=== PATIENT | female | born 1985 | race American Indian/Alaskan Native ===

== ENCOUNTER 2016-12-12 10:56 | Emergency (ER) | payer OTHER ==
--- NOTE | 2016-12-12 12:05 | C.PDOC ---
History Of Present Illness The patient, a 31 y/o female, presents to the ED for evaluation of nausea which began around 3 days ago. Patient states she experiences epigastric abdominal pain which radiates towards her chest whenever she has an episode of vomiting. Contrary to triage, patient describes her chest pain as a "heart burning sensation." Patient notes LMP was 10/20/16. She denies fever, chills, back pain. Time Seen by Provider: 12/12/16 12:04 Chief Complaint (Nursing): Abdominal Pain History Per: Patient History/Exam Limitations: no limitations Onset/Duration Of Symptoms: Days (3) Current Symptoms Are (Timing): Still Present Location Of Pain/Discomfort: Epigastric Radiation Of Pain To:: Chest Quality Of Discomfort: Burning, "Pain" Associated Symptoms: denies: Fever, Chills Past Medical History Reviewed: Historical Data, Nursing Documentation, Vital Signs Vital Signs: Last Vital Signs Temp 97.8 F 12/12/16 13:33 Pulse 61 12/12/16 13:33 Resp 19 12/12/16 13:33 BP 109/72 12/12/16 13:33 Pulse Ox 100 12/12/16 17:58 - Medical History PMH: No Chronic Diseases Surgical History: No Surg Hx Family History: States: Unknown Family Hx - Social History Hx Alcohol Use: No Hx Substance Use: No - Immunization History Hx Tetanus Toxoid Vaccination: No Hx Influenza Vaccination: No Hx Pneumococcal Vaccination: No Review Of Systems Except As Marked, All Systems Reviewed And Found Negative. Constitutional: Negative for: Fever, Chills Cardiovascular: Positive for: Chest Pain (burning ) Gastrointestinal: Positive for: Nausea, Vomiting, Abdominal Pain (epigastric ) Physical Exam - Physical Exam Appears: Non-toxic, No Acute Distress Skin: Normal Color, Warm, Dry Head: Atraumatic, Normacephalic Eye(s): bilateral: Normal Inspection Oral Mucosa: Moist Neck: Supple Chest: Symmetrical, No Deformity, No Tenderness Cardiovascular: Rhythm Regular, No Murmur Respiratory: Normal Breath Sounds, No Rales, No Rhonchi, No Wheezing Gastrointestinal/Abdominal: Soft, No Tenderness, No Guarding, No Rebound Back: Normal Inspection, No Vertebral Tenderness, No Paraspinal Tenderness Extremity: Normal ROM, Capillary Refill (less than 2 seconds ) Neurological/Psych: Oriented x3, Normal Speech, Normal Cognition Gait: Steady ED Course And Treatment ECG Rhythm: Sinus Bradycardia ECG Interpretation: Normal Interpretation Of ECG: Sinus bradycardia. Otherwise Normal ECG O2 Sat by Pulse Oximetry: 100 (RA) Pulse Ox Interpretation: Normal Progress Note: UA ordered, pt is (+) for . Patient received Zofran PO. On reassessment, pt is resting comfortably, showing no signs of distress, and reports an improvement in her symptoms. Pt is stable for discharge from the ED and is advised to f/u with her PMD within 1-2 days for further evaluation. Reassessment Condition: Improved Disposition - Disposition Referrals: [facility] [Outside] [facility] [Outside] Disposition: HOME/ ROUTINE Disposition Time: 13:40 Condition: STABLE Additional Instructions: Follow up with your PMD/Clinic within 1-2 days. Return to ED if feel worse. Prescriptions: Vit Calc,Iron,Folic [ Vitamins] 1 each PO DAILY #30 tablet Ondansetron ODT [Zofran ODT] 4 mg PO .Q4-6H PRN #20 odt PRN Reason: Nausea/Vomiting Instructions: Morning Sickness (ED) - Clinical Impression Clinical Impression: Morning sickness - PA / STONER HAND / Resident Statement MD/DO has reviewed & agrees with the documentation as recorded. - Scribe Statement The provider has reviewed the documentation as recorded by the Scribe (Elham Farrar) All medical record entries made by the Scribe were at my direction and personally dictated by me. I have reviewed the chart and agree that the record accurately reflects my personal performance of the history, physical exam, medical decision making, and the department course for this patient. I have also personally directed, reviewed, and agree with the discharge instructions and disposition.
[2016-12-12 12:12] LABS: RBC URINE < 1 /hpf (0-3); URINE BACTERIA RARE (<OCC); URINE BILIRUBIN NEGATIVE (NEGATIVE); URINE BLOOD NEGATIVE (NEGATIVE); URINE COLOR Straw (YELLOW); URINE GLUCOSE (UA) NORMAL (Normal); URINE KETONE NEGATIVE (NEGATIVE); URINE LEUKOCYTE ESTERASE NEG Leu/uL (Negative); URINE PROTEIN NEGATIVE (NEGATIVE); URINE UROBILINOGEN NORMAL mg/dL (0.2-1.0); WBC URINE 1 /hpf (0-5)
[2016-12-12 13:34] VITALS: BP 109/72; PULSE 61; RESP 19; TEMP 97.8
[2016-12-12 13:42] VITALS: O2SAT 100
== END 2016-12-12 13:49 | disposition home or self-care (01) ==
LOC: C.ER 10:56
DX: O21.0 Mild hyperemesis gravidarum (principal); Z3A.00 Weeks of gestation of pregnancy not specified

== ENCOUNTER 2017-07-15 20:12 | Inpatient (IN) | payer MEDICAID, OTHER, SELFPAY ==
[2017-07-15 20:21] VITALS: BMI 27.8
--- NOTE | 2017-07-15 20:43 | OBDCSUM ---
Datetime: 07/15/2017 20:41 Discharged to, Provider: Home Follow up at, Provider: sunday Follow up in weeks, Provider: clinic Discharge Comment, Provider: dc home labor inbs given po hy f/u in clinic on Discharge Diagnosis Prov Other: dec fm 40weeks
--- NOTE | 2017-07-15 20:43 | OBHP ---
Datetime: 07/15/2017 20:38 IP Adm Impression: Term, intrauterine IP Admit Plan: Discharge home Admit Comment, IP Provider: at 40.1weeks came with c/o dec fm for 2 days. pt sttes she cant see the baby movingno pain or vb or lof obhx 2 pmh den medcpnv all nkda psh den soch de ve /-3 a/p at 40+weks reactive nst dc home labor inbs given po hy f/u in clinic on Pelvic Type - PN: Adequate Extremities - PN: Normal Abdomen - PN: Normal Back - PN: Normal Breast - PN: Normal Lungs - PN: Normal Heart - PN: Normal Thyroid - PN: Normal Neurologic - PN: Normal HEENT - PN: Normal General - PN: Normal FHR - Baseline A Provider: 130 Contraction Comments Provider: irrg Comments, ACOG Physical Exam: gravid,non tender ext no edema,no calf teb IP Hx Assessment: The History has been Reviewed and is Current EGA AdmitDate IP: 40.1 Vital Signs Provider: Reviewed; Within Normal Limits IP Chief Complaint: Decreased movement NICHD Variability Prov Fetus A: Moderate 6-25bpm NICHD Accel Fetus A IP Provider: 15X15 FHR Category Provider Fetus A: Category I Dilatation, Provider: 1 Effacement, Provider: 50 Station, Provider: -3 Genitourinary Exam: Normal DTRs - PN: Normal
[2017-07-15] MEDS ORDERED: Nalbuphine 20 mg/ml Inj (1 ml) IVP PRN (21:00)
--- NOTE | 2017-07-15 21:02 | OBADHP ---
Datetime: 07/15/2017 20:38 Admit Comment, IP Provider: at 40.1weeks came with c/o dec fm for 2 days. pt sttes she cant see the baby movingno pain or vb or lof obhx 2 pmh den medcpnv all nkda psh den soch de ve /-3 a/p at 40+weks reactive non reactive nst admit to l_d npo/ivf labs cont carlton and efm cervidil pain management anticipate Pelvic Type - PN: Adequate Extremities - PN: Normal Abdomen - PN: Normal Back - PN: Normal Breast - PN: Normal Lungs - PN: Normal Heart - PN: Normal Thyroid - PN: Normal Neurologic - PN: Normal HEENT - PN: Normal General - PN: Normal FHR - Baseline A Provider: 130 Contraction Comments Provider: irrg Comments, ACOG Physical Exam: gravid,non tender ext no edema,no calf teb IP Hx Assessment: The History has been Reviewed and is Current Vital Signs Provider: Reviewed; Within Normal Limits IP Chief Complaint: Decreased movement NICHD Variability Prov Fetus A: Moderate 6-25bpm NICHD Accel Fetus A IP Provider: 15X15 FHR Category Provider Fetus A: Category I Dilatation, Provider: 1 Effacement, Provider: 50 Station, Provider: -3 Genitourinary Exam: Normal DTRs - PN: Normal EGA AdmitDate IP: 40.1 IP Adm Impression: Term, intrauterine ; No Active Labor IP Admit Plan: Admit to unit; Initiate labor induction protocol
[2017-07-15] MEDS: Lactated Ringer's 1,000 ML IV SCH (21:23)
[2017-07-15 21:44] LABS: BASO % 0.2 % (0.0-2.0); EOS # 0.2 K/uL (0.0-0.7); LYMPH % 24.6 % (20.0-40.0); MEAN CELL VOLUME 73.3 fL (81.0-99.0); MEAN CORPUSCULAR HEMOGLOBIN 23.6 pg (27.0-31.0); MEAN CORPUSCULAR HGB CONC 32.2 g/dL (33.0-37.0); MEAN PLATELET VOLUME 11.3 fL (7.2-11.7); MONO # 0.6 K/uL (0.0-0.8); MONO % 7.9 % (0.0-10.0); NEUT # 5.3 K/uL (1.8-7.0); NEUT % 65.3 % (50.0-75.0); NRBC % 0.1 % (0.0-2.0); RBC 5.66 Mil/uL (3.80-5.20); RED CELL DISTRIBUTION WIDTH 17.2 % (11.5-14.5); WHITE BLOOD COUNT 8.2 K/uL (4.8-10.8)
[2017-07-15 21:46] LABS: SQUAMOUS EPITHIAL 1 /hpf (0-5); URINE BILIRUBIN NEGATIVE (NEGATIVE); URINE BLOOD NEGATIVE (NEGATIVE); URINE CLARITY Clear (Clear); URINE COLOR Straw (YELLOW); URINE GLUCOSE (UA) NORMAL (Normal); URINE LEUKOCYTE ESTERASE NEG Leu/uL (Negative); URINE NITRATE NEGATIVE (NEGATIVE); URINE PROTEIN NEGATIVE (NEGATIVE); URINE UROBILINOGEN NORMAL mg/dL (0.2-1.0)
[2017-07-15 21:47] LABS: HEMOGLOBIN 13.3 g/dL (11.0-16.0)
[2017-07-15 21:54] LABS: ALB/GLOB RATIO 1.1 (1.0-2.1); ALBUMIN 4.2 g/dL (3.5-5.0); ALT/SGPT 31 U/L (9-52); AST/SGOT 24 U/L (14-36); BLOOD UREA NITROGEN 5 mg/dL (7-17); CALCIUM 9.2 mg/dl (8.6-10.4); GFR AFRICAN-AMERICAN > 60; GFR NON-AFRICAN AMERICAN > 60
[2017-07-16] MEDS: Lactated Ringer's 1,000 ML IV SCH (02:14)
[2017-07-16] MEDS ORDERED: Nalbuphine 20 mg/ml Inj (1 ml) ONE (02:44)
[2017-07-16] MEDS ORDERED: Oxycodone/Acetaminophen 5/325 mg Tab PO PRN ×2 (04:19)
[2017-07-16] MEDS ORDERED: Benzocaine/Menthol 20%-0.5% Topical Spray (60 ml) TOP PRN (04:19)
[2017-07-16] MEDS ORDERED: Oxycodone/Acetaminophen 5/325 mg Tab ONE (05:08)
[2017-07-16] MEDS: Simethicone 80 mg Chewtab PO SCH ×4 (10:42→22:12)
[2017-07-16 15:02] LABS: BASO % 0.3 % (0.0-2.0); EOS # 0.1 K/uL (0.0-0.7); EOS % 0.9 % (0.0-4.0); LYMPH # 1.6 K/uL (1.0-4.3); LYMPH % 16.7 % (20.0-40.0); MEAN CELL VOLUME 74.4 fL (81.0-99.0); MEAN CORPUSCULAR HEMOGLOBIN 24.6 pg (27.0-31.0); MEAN PLATELET VOLUME 11.9 fL (7.2-11.7); MONO # 0.8 K/uL (0.0-0.8); MONO % 8.8 % (0.0-10.0); NEUT # 6.9 K/uL (1.8-7.0); NEUT % 73.3 % (50.0-75.0); NRBC % 0.1 % (0.0-2.0); RBC 4.36 Mil/uL (3.80-5.20); RED CELL DISTRIBUTION WIDTH 16.5 % (11.5-14.5); WHITE BLOOD COUNT 9.4 K/uL (4.8-10.8)
[2017-07-16 15:10] LABS: HEMOGLOBIN 10.7 g/dL (11.0-16.0)
--- NOTE | 2017-07-16 16:58 | OBPPN ---
Datetime: 07/16/2017 16:32 PP Plan Prov: Continue present management PP Progress Note Prov: Notified by R.N. at approx 1600 hours - concerned for heavier vaginal bleedin g than expected. Patient received in bed; present. Patient predominantly Moldovan-speaking; understands [employer] . Reports the bleding is very heavy. [place] a little dizzy; no palpitaions, chest pain or shortness of breath. Fells better now P.E.: as above. WD in NAD. VS reviewed; HR noted 57 bpm Lungs: CTA bilaterally C[place]: RRR. normal S1, S2 Abdomen: Uterus contracted , 1 FB below umbilicus, fimr, mobile, nminimally tender. - perineum/vagina inspected. Cervix visualized - no lacerations. No other lacerations. Intrauterin e exploration performed - no significant amount of clots expressed. One [id number] "membranes" expressed. Uterus remains firm and contracted. Extremities: warm bilaterally; good pulses bilaterally Labs: 1400 hours H/H 10.7/32.5 Assessment: PPD#0, 31 y.o. P3, S/P precipituous vaginal delivery with immediate PPH; now S/P uter ine exploration - as above. Post anemia noted: acute post hemorrhagic blood loss. Patietn cu rrrently asymptomatic and is hemodynamically stableb. Plan 1) Assistance when out of bed to ambulate 2) Add iron supplementation 3) Encourage p.o. intake, and increase p.o. intake of fluids (water) 4) CBC in AM 5) Continue post care
[2017-07-17] MEDS: Potassium Chloride 20 mEq ER Tab PO SCH ×2 (00:24→04:29)
[2017-07-17 07:40] LABS: HEMOGLOBIN 10.3 g/dL (11.0-16.0); MEAN CELL VOLUME 74.6 fL (81.0-99.0); MEAN CORPUSCULAR HEMOGLOBIN 24.6 pg (27.0-31.0); MEAN CORPUSCULAR HGB CONC 32.9 g/dL (33.0-37.0); MEAN PLATELET VOLUME 11.5 fL (7.2-11.7); RBC 4.17 Mil/uL (3.80-5.20); RED CELL DISTRIBUTION WIDTH 17.3 % (11.5-14.5); WHITE BLOOD COUNT 9.2 K/uL (4.8-10.8)
[2017-07-17 08:19] LABS: BLOOD UREA NITROGEN 5 mg/dL (7-17); GFR AFRICAN-AMERICAN > 60; GFR NON-AFRICAN AMERICAN > 60
[2017-07-17] MEDS: Simethicone 80 mg Chewtab PO SCH ×4 (10:14→22:51)
--- NOTE | 2017-07-17 11:29 | OBPPN ---
Datetime: 07/17/2017 11:20 PP Pain Prov: Within normal limits PP Nausea Prov: Denies PP Flatus Prov: Yes PP BM Prov: No PP Heart Prov: Normal PP Lungs Prov: Normal PP Abdomen/Uterus Prov: Normal PP Lochia Prov: Normal PP CVA Tenderness Prov: Normal PP Extremities Prov: Normal PP C/S Incision Prov: Not Applicable PP Progress Prov: Normal PP Impression Prov: Normal progression PP Plan Prov: Continue present management PP Progress Note Prov: S-Patient states that her pain is well controlled.tolerating diet.voiding wit hout difficult. O-VS Afebrile Fundus firm and below umbilcius extremities no calf tenderness A/P Patient s/p vaginal delivery ppd 1.hemoglobin stable -continue routine post care -monitor closely Vital Signs Provider PP: Reviewed; Within Normal Limits
[2017-07-18 00:11] VITALS: PULSE 67
[2017-07-18 08:16] VITALS: BP 124/78; RESP 18; TEMP 98.7; O2SAT 99
[2017-07-18] MEDS ORDERED: Potassium Chloride 20 mEq ER Tab PO ONE ×2 (08:30→10:00)
[2017-07-18] MEDS ORDERED: Influenza Vaccine 60 mcg/0.5 mL SYR (4YR UP) IM ONE (10:00)
== END 2017-07-18 13:40 | disposition home or self-care (01) | DRG 774 ==
LOC: C.EROB 20:12 → C.4D 20:56 → C.4M 07-16 06:40
PROVIDERS: ADMIT Obstetrics & Gynecology; ATTEND Obstetrics & Gynecology
PROC: 10E0XZZ Delivery of Products of Conception, External Approach (ICD-10-PCS; principal; 2017-07-15)
DX: O76 Abnormality in fetal heart rate and rhythm complicating labor and delivery (principal); O72.2 Delayed and secondary postpartum hemorrhage; O99.02 Anemia complicating childbirth; Z3A.40 40 weeks gestation of pregnancy; Z37.0 Single live birth

== ENCOUNTER 2017-07-27 13:41 | Emergency (ER) | payer MEDICAID, SELFPAY ==
[2017-07-27 13:42] VITALS: BMI 27.8
[2017-07-27] MEDS ORDERED: Sodium Chloride 0.9% 1,000 ML IV ONE (14:44)
[2017-07-27 14:47] VITALS: RESP 18; O2SAT 97
[2017-07-27] MEDS ORDERED: Sodium Chloride 0.9% 1,000 ML ONE (15:19)
[2017-07-27 15:23] LABS: BASO % 0.4 % (0.0-2.0); EOS # 0.2 K/uL (0.0-0.7); HEMOGLOBIN 11.5 g/dL (11.0-16.0); LYMPH # 1.9 K/uL (1.0-4.3); LYMPH % 33.5 % (20.0-40.0); MEAN CELL VOLUME 72.9 fL (81.0-99.0); MEAN CORPUSCULAR HGB CONC 32.9 g/dL (33.0-37.0); MEAN PLATELET VOLUME 9.2 fL (7.2-11.7); MONO # 0.6 K/uL (0.0-0.8); MONO % 10.3 % (0.0-10.0); NEUT # 2.9 K/uL (1.8-7.0); NEUT % 51.8 % (50.0-75.0); NRBC % 0.1 % (0.0-2.0); RBC 4.81 Mil/uL (3.80-5.20); RED CELL DISTRIBUTION WIDTH 16.9 % (11.5-14.5); WHITE BLOOD COUNT 5.7 K/uL (4.8-10.8)
[2017-07-27 15:47] LABS: SQUAMOUS EPITHIAL 2 /hpf (0-5); URINE BACTERIA RARE (<OCC); URINE BILIRUBIN NEGATIVE (NEGATIVE); URINE BLOOD NEGATIVE (NEGATIVE); URINE CLARITY Clear (Clear); URINE COLOR Yellow (YELLOW); URINE GLUCOSE (UA) NORMAL (Normal); URINE LEUKOCYTE ESTERASE TRACE Leu/uL (Negative); URINE NITRATE NEGATIVE (NEGATIVE); URINE PROTEIN 1+ mg/dL (NEGATIVE); URINE UROBILINOGEN NORMAL mg/dL (0.2-1.0)
--- NOTE | 2017-07-27 16:17 | C.PDOC ---
History Of Present Illness Patient presents to ED c/o thick discharge and pelvic pain, as well as lightheadness and painful hemorrhoid. Patient is , had vaginal delivery here at [facility] on 07/15. She denies nausea/vomiting/diarrhea, dysuria. Time Seen by Provider: 07/27/17 13:56 Chief Complaint (Nursing): Abdominal Pain History Per: Patient History/Exam Limitations: no limitations Onset/Duration Of Symptoms: Days Current Symptoms Are (Timing): Still Present Severity: Moderate Quality Of Discomfort: "Pain" Past Medical History Reviewed: Historical Data, Nursing Documentation, Vital Signs Vital Signs: Last Vital Signs Temp 97.8 F 07/27/17 14:45 Pulse 67 07/27/17 14:45 Resp 18 07/27/17 14:45 BP 133/93 H 07/27/17 14:45 Pulse Ox 97 07/27/17 16:24 - Medical History PMH: No Chronic Diseases Surgical History: Tonsillectomy - [facility] Procedures DELIVERY OF PRODUCTS OF CONCEPTION, EXTERNAL APPROACH (07/15/17) Family History: States: No Known Family Hx - Social History Hx Alcohol Use: No Hx Substance Use: No - Immunization History Hx Tetanus Toxoid Vaccination: Yes Hx Influenza Vaccination: Yes Hx Pneumococcal Vaccination: No Review Of Systems Except As Marked, All Systems Reviewed And Found Negative. Constitutional: Negative for: Fever, Chills Cardiovascular: Negative for: Chest Pain Respiratory: Negative for: Shortness of Breath Gastrointestinal: Negative for: Nausea, Vomiting, Abdominal Pain, Diarrhea Genitourinary: Positive for: Vaginal Discharge, Vaginal Bleeding, Pelvic Pain Skin: Negative for: Rash Physical Exam - Physical Exam Appears: Well, Non-toxic, No Acute Distress Skin: Normal Color, Warm, Dry Oral Mucosa: Moist Cardiovascular: Rhythm Regular Respiratory: Normal Breath Sounds, No Rales, No Rhonchi, No Wheezing Gastrointestinal/Abdominal: Normal Exam, Bowel Sounds, Soft, No Tenderness Rectal: Hemorrhoids (large external hemorrhoid at 3 o'clock, nonthrombosed) Pelvic: Normal External Exam, Normal Bimanual Exam, No Vaginal Bleeding, Vaginal Discharge (thick white discharge in vault), No Cervical Motion Tenderness, No Adnexal Tenderness ED Course And Treatment - Laboratory Results Result Diagrams: 07/27/17 15:18 07/27/17 15:18 O2 Sat by Pulse Oximetry: 97 - Physician Consult Information Physician Contacted: Blu Wei Outcome Of Conversation: Discussed patient with ob call building materials sales attendant, recommends Augmentin 875mg PO BID x 1 week, and follow up in building materials sales attendant clinic. Disposition Counseled Patient/Family Regarding: Studies Performed, Diagnosis, Need For Followup, Rx Given - Disposition Referrals: [facility] [Outside] Disposition: HOME/ ROUTINE Disposition Time: 16:45 Condition: STABLE Additional Instructions: FOLLOW UP IN THE [facility] WITHIN 1 WEEK USE ANTIBIOTICS UNTIL FINISHED RETURN TO EMERGENCY ROOM IF SYMPTOMS WORSEN Prescriptions: Amoxicillin/Clavulanate [Augmentin 875 MG-125 MG] 1 tab PO BID #14 tab Docusate [Colace] 100 mg PO DAILY #30 cap Hydrocortisone 2.5% (Rectal) [Anusol-HC] 1 applic NC BID #1 tube Instructions: Vaginal Discharge (ED), Sitz [place] (GEN) Forms: [email or web address] (Japanese) Print Language: COMORAN - POA Present On Arrival: None - Clinical Impression Clinical Impression: Vaginal discharge, follow-up
[2017-07-27] MEDS ORDERED: Hydrocortisone 2.5% Rectal Cream(30 gm) PR STA (16:22)
[2017-07-27 16:30] LABS: ALBUMIN 3.9 g/dL (3.5-5.0); ALT/SGPT 35 U/L (9-52); AST/SGOT 29 U/L (14-36); BLOOD UREA NITROGEN 13 mg/dL (7-17); CALCIUM 8.8 mg/dl (8.6-10.4); GFR AFRICAN-AMERICAN > 60; GFR NON-AFRICAN AMERICAN > 60
[2017-07-27] MEDS ORDERED: Amoxicillin-Clav 875-125 mg Tab PO STA (16:31)
[2017-07-27] MEDS ORDERED: Amoxicillin-Clav 875-125 mg Tab PO ONE (16:46)
[2017-07-27 16:57] VITALS: BP 149/92; PULSE 59; TEMP 97.9
== END 2017-07-27 17:19 | disposition home or self-care (01) ==
LOC: C.ER 13:41
DX: Z39.2 Encounter for routine postpartum follow-up (principal); N89.8 Other specified noninflammatory disorders of vagina
CPT/HCPCS: 80053; 81001; 85025; 96360; 99285; J7040

== ENCOUNTER 2018-01-11 09:54 | Emergency (ER) | payer OTHER ==
[2018-01-11 09:58] VITALS: BMI 25.8
[2018-01-11 10:00] VITALS: O2SAT 99
--- NOTE | 2018-01-11 10:35 | C.PDOC ---
History Of Present Illness Pt c/o right upper eyelid swelling. States that it started 5 days ago, resolved , then returned yesterday. Time Seen by Provider: 01/11/18 10:15 Chief Complaint (Nursing): Eye Problem History Per: Patient Onset/Duration Of Symptoms: Days (5) Current Symptoms Are (Timing): Still Present Injury To Eye?: No Severity: Moderate Quality: Other (Swelling) Wears Contact Lens?: No Associated Symptoms: Swelling, Itching Additional History Per: Prior Records Past Medical History Reviewed: Historical Data, Nursing Documentation, Vital Signs Vital Signs: Last Vital Signs Temp 98.4 F 01/11/18 09:59 Pulse 62 01/11/18 09:59 Resp 17 01/11/18 09:59 BP 110/72 01/11/18 09:59 Pulse Ox 99 01/11/18 09:59 - Medical History PMH: No Chronic Diseases Surgical History: Tonsillectomy - [facility] Procedures DELIVERY OF PRODUCTS OF CONCEPTION, EXTERNAL APPROACH (07/15/17) Family History: States: Unknown Family Hx - Social History Hx Alcohol Use: No Hx Substance Use: No - Immunization History Hx Tetanus Toxoid Vaccination: Yes Hx Influenza Vaccination: Yes Hx Pneumococcal Vaccination: No Review Of Systems Except As Marked, All Systems Reviewed And Found Negative. Constitutional: Negative for: Fever, Weakness Eyes: Positive for: Eyelid Inflammation (right upper). Negative for: Conjunctivae Inflammation Respiratory: Negative for: Shortness of Breath Gastrointestinal: Negative for: Vomiting Musculoskeletal: Negative for: Neck Pain Skin: Negative for: Rash Neurological: Negative for: Weakness, Numbness, Headache Physical Exam - Physical Exam Appears: Non-toxic, No Acute Distress Skin: Normal Color, Warm, Dry Head: Atraumatic, Normacephalic Eye(s): bilateral: PERRL, EOMI, right: Eyelid Inflammation (Upper) Neck: Normal ROM, Supple Lymphatic: No Adenopathy Extremity: Normal ROM Neurological/Psych: Oriented x3, Normal Cranial Nerves, Normal Motor, Normal Sensation ED Course And Treatment O2 Sat by Pulse Oximetry: 99 Pulse Ox Interpretation: Normal Disposition Counseled Patient/Family Regarding: Diagnosis, Need For Followup, Rx Given - Disposition Referrals: David Kohli [Staff Provider] - Disposition: HOME/ ROUTINE Disposition Time: 10:37 Condition: STABLE Additional Instructions: Follow up with an Legal Records Manager (eye doctor) for further evaluation and treatment. Return to the ER if you develop fever, redness, pus drainage, change in vision, worsening of symptoms or if you have any other concerns. Prescriptions: Cetirizine HCl [Zyrtec] 10 mg PO DAILY PRN #30 capsule PRN Reason: Allergy Symptoms Erythromycin 0.5% [Ilytocin] 1 applic OD QID #1 tube Instructions: Blepharitis - Clinical Impression Clinical Impression: Swelling of right upper eyelid
[2018-01-11 10:52] VITALS: BP 112/70; PULSE 70; RESP 16; TEMP 98.2
== END 2018-01-11 10:51 | disposition home or self-care (01) ==
LOC: C.ER 09:54
DX: H02.89 Other specified disorders of eyelid (principal)

== ENCOUNTER 2018-06-10 12:16 | Emergency (ER) | payer OTHER ==
[2018-06-10 12:16] VITALS: BMI 26.9
[2018-06-10 12:31] VITALS: BP 117/74; PULSE 68; RESP 18; TEMP 98.2; O2SAT 98
--- NOTE | 2018-06-10 12:52 | C.PDOC ---
History Of Present Illness Patient presents to ER with complaints of left eyelid discomfort for 2 days and noticed a bump. She states its uncomfortable when blinking or when palpated. Denies any pain, vision changes, foreign body sensation, discharge or itching Time Seen by Provider: 06/10/18 12:33 Chief Complaint (Nursing): Eye Problem History Per: Patient History/Exam Limitations: no limitations Onset/Duration Of Symptoms: Days (2) Current Symptoms Are (Timing): Still Present Past Medical History Reviewed: Historical Data, Nursing Documentation, Vital Signs Vital Signs: Last Vital Signs Temp 98.2 F 06/10/18 12:29 Pulse 68 06/10/18 12:29 Resp 18 06/10/18 12:29 BP 117/74 06/10/18 12:29 Pulse Ox 98 06/10/18 12:29 - Medical History PMH: No Chronic Diseases Surgical History: Tonsillectomy - [facility] Procedures DELIVERY OF PRODUCTS OF CONCEPTION, EXTERNAL APPROACH (07/15/17) Family History: States: Unknown Family Hx - Social History Hx Alcohol Use: No Hx Substance Use: No - Immunization History Hx Tetanus Toxoid Vaccination: Yes Hx Influenza Vaccination: Yes Hx Pneumococcal Vaccination: No Review Of Systems Except As Marked, All Systems Reviewed And Found Negative. Eyes: Positive for: Eyelid Inflammation. Negative for: Vision Change, Redness Physical Exam - Physical Exam Appears: Well, Non-toxic, No Acute Distress Skin: Normal Color, Warm, No Diaphoretic, No Rash Head: Atraumatic, Normacephalic Eye(s): bilateral: PERRL, EOMI, right: Normal Inspection, left: Eyelid Inflammation (small round nontender nodule to mid-upper eyelid, no erythema. No conjunctival injection, discharge, or crust on lashes) Neck: Normal ROM Chest: Symmetrical Neurological/Psych: Oriented x3, Normal Speech Gait: Steady ED Course And Treatment O2 Sat by Pulse Oximetry: 98 Medical Decision Making Medical Decision Making: Patient with nodule to left upper eyelid consistent with chalazion. There was no foreign body on eyelid eversion. There was no redness, or discharge to eye suggestive of infection. Patient advised to follow up with optho Disposition Counseled Patient/Family Regarding: Diagnosis, Need For Followup - Disposition Referrals: David Kohli [Staff Provider] - Disposition: HOME/ ROUTINE Disposition Time: 12:52 Condition: GOOD Additional Instructions: Keep eyelids clean, can apply warm towel to area. Follow up with inspector eyeglass frames for further care Instructions: Chalazion Forms: [facility] (Angolan) - POA Present On Arrival: None - Clinical Impression Clinical Impression: Chalazion of left upper eyelid
== END 2018-06-10 13:14 | disposition home or self-care (01) ==
LOC: C.ER 12:16
DX: H00.14 Chalazion left upper eyelid (principal)